=== PATIENT | female | born 1990 | race Caucasian/White ===

== ENCOUNTER 2025-03-15 06:58 | Outpatient (RCR) | payer BC, SELFPAY | END 2025-03-15 23:59 | disposition home or self-care (01) | LOC: RPT 06:58 | PROVIDERS: ATTENDING PHYSICIAN Physical Medicine & Rehabilitation Sports Medicine; FAMILY PHYSICIAN Student in an Organized Health Care Education/Training Program | DX: M25.512 Pain in left shoulder (principal); S46.012D Strain of muscle(s) and tendon(s) of the rotator cuff of left shoulder, subsequent encounter; M75.52 Bursitis of left shoulder; Z73.6 Limitation of activities due to disability; M62.81 Muscle weakness (generalized); X58.XXXD Exposure to other specified factors, subsequent encounter | CPT/HCPCS: 72040; 72070; 97010; 97110; 97112; 97162 ==

== ENCOUNTER → 2025-03-15 11:49 | Outpatient (REF) | payer BC, SELFPAY | LOC: REG 11:49 | PROVIDERS: ATTENDING PHYSICIAN Internal Medicine Rheumatology; FAMILY PHYSICIAN Student in an Organized Health Care Education/Training Program | DX: M25.50 Pain in unspecified joint (principal) | CPT/HCPCS: 72040; 72070 ==

== ENCOUNTER 2025-04-05 09:01 | Outpatient (RCR) | payer BC, SELFPAY | END 2025-04-05 23:59 | disposition home or self-care (01) | LOC: RPT 09:01 | PROVIDERS: ATTENDING PHYSICIAN Physical Medicine & Rehabilitation Sports Medicine; FAMILY PHYSICIAN Student in an Organized Health Care Education/Training Program | DX: M25.512 Pain in left shoulder (principal); S46.012D Strain of muscle(s) and tendon(s) of the rotator cuff of left shoulder, subsequent encounter (principal); M75.52 Bursitis of left shoulder; Z73.6 Limitation of activities due to disability; X58.XXXD Exposure to other specified factors, subsequent encounter; M62.81 Muscle weakness (generalized) | CPT/HCPCS: 97010; 97110 ==